=== PATIENT | male | born 1965 | race Caucasian/White ===

== ENCOUNTER 2024-07-29 13:07 | Emergency (ER) | payer MEDICARE, OTHER ==
[~2024-07-29] VITALS: Ht 185.4 cm; Wt 89.8 kg
[2024-07-29 13:20] VITALS: BP 178/116; PULSE 89; RESP 18; TEMP 98.1; O2SAT 99
[2024-07-29] MEDS: TRANDATE IV STA (14:09)
[2024-07-29 14:15] VITALS: BP 184/104; PULSE 94; RESP 18; O2SAT 97
[2024-07-29 14:44] VITALS: BP 159/95; PULSE 92; RESP 18; O2SAT 98
== END 2024-07-29 14:48 | disposition home or self-care (01) ==
LOC: ER 13:07
DX: S52.121A Displaced fracture of head of right radius, initial encounter for closed fracture (principal); I10 Essential (primary) hypertension; F12.90 Cannabis use, unspecified, uncomplicated; X58.XXXA Exposure to other specified factors, initial encounter; Y93.89 Activity, other specified; Y92.89 Other specified places as the place of occurrence of the external cause; Y99.8 Other external cause status
CPT/HCPCS: 96374; 99283; 73070-RT